=== PATIENT | male | born 1940 | race Caucasian/White ===

== ENCOUNTER 2016-07-20 14:09 | Emergency (ER) | payer MEDICARE | END 2016-07-20 15:40 | disposition short-term general hospital (02) | LOC: ER 14:09 | PROC: 3E0234Z Introduction of Serum, Toxoid and Vaccine into Muscle, Percutaneous Approach (ICD-10-PCS; principal; 2016-07-20) | DX: J96.90 Respiratory failure, unspecified, unspecified whether with hypoxia or hypercapnia (principal); I95.9 Hypotension, unspecified; S31.134A Puncture wound of abdominal wall without foreign body, left lower quadrant without penetration into peritoneal cavity, initial encounter; S30.1XXA Contusion of abdominal wall, initial encounter; R58 Hemorrhage, not elsewhere classified; R61 Generalized hyperhidrosis; M54.9 Dorsalgia, unspecified; V86.99XA Unspecified occupant of other special all-terrain or other off-road motor vehicle injured in nontraffic accident, initial encounter; E11.9 Type 2 diabetes mellitus without complications; Z23 Encounter for immunization ==

== ENCOUNTER 2016-08-26 21:54 | Emergency (ER) | payer MEDICARE | END 2016-08-27 02:09 | disposition short-term general hospital (02) | LOC: ER 21:54 | DX: S27.0XXA Traumatic pneumothorax, initial encounter (principal); S22.31XA Fracture of one rib, right side, initial encounter for closed fracture; W05.0XXA Fall from non-moving wheelchair, initial encounter; Y92.009 Unspecified place in unspecified non-institutional (private) residence as the place of occurrence of the external cause; Z88.5 Allergy status to narcotic agent | CPT/HCPCS: 71010; 71250; 96372; 99070; 99284; 99285-25; J7040 ==